=== PATIENT | male | born 1955 | race Caucasian/White ===

== ENCOUNTER 2018-10-17 08:37 | Day surgery (SDC) | payer BC ==
[~2018-10-17] VITALS: Ht 170.2 cm; Wt 55.4 kg
[~2018-10-17 08:37] MED LIST: BUSP10TA PO; CELE10TA PO; HYDR10EL PO; NS 1,000 ML IV ONE; VALI10TA PO
[2018-10-17] MEDS ORDERED: PROPOFOL 200 MG/20 ML VIAL As Ordered ONE (10:11)
[2018-10-17] MEDS ORDERED: LIDOCAINE 2% INJ 100 MG/5 ML SDV (FOR ANES.) As Ordered ONE (10:11)
[2018-10-17] MEDS ORDERED: fentaNYL 100 MCG/2 ML INJECTION (J3010) As Ordered ONE (10:57)
--- NOTE | 2018-10-17 11:07 | ROOR ---
Patient Name: Tan Steele Procedure Date: 10/17/2018 10:52 AM Date of : 1955 Age: 63 Room: [facility] Gender: Male Note Status: Finalized Procedure: Upper GI endoscopy Indications: Suspected esophageal reflux Providers: Matthew Lopez Jr, MD Referring MD: RAZA BARRIENTOS MD Requesting Provider: Medicines: Propofol per Anesthesia Complications: No immediate complications. Procedure: Pre-Anesthesia Assessment: - Prior to the procedure, a History and Physical was performed, and patient medications and allergies were reviewed. The patient is competent. The risks and benefits of the procedure and the sedation options and risks were discussed with the patient. All questions were answered and informed consent was obtained. Patient identification and proposed procedure were verified by the physician and the nurse in the pre-procedure area and in the procedure room. Mental Status Examination: alert and oriented. Airway Examination: normal oropharyngeal airway and neck mobility. Respiratory Examination: clear to auscultation. CV Examination: normal. ASA Grade Assessment: II - A patient with mild systemic disease. After reviewing the risks and benefits, the patient was deemed in satisfactory condition to undergo the procedure. The anesthesia plan was to use moderate sedation / analgesia (conscious sedation). Immediately prior to administration of medications, the patient was re-assessed for adequacy to receive sedatives. The heart rate, respiratory rate, oxygen saturations, blood pressure, adequacy of pulmonary ventilation, and response to care were monitored throughout the procedure. The physical status of the patient was re-assessed after the procedure. The Endoscope was introduced through the mouth, and advanced to the second part of duodenum. The upper GI endoscopy was accomplished without difficulty. The patient tolerated the procedure well. Findings: The upper third of the esophagus, middle third of the esophagus and lower third of the esophagus were normal. The cardia, gastric fundus, gastric body, gastric antrum, prepyloric region of the stomach and pylorus were normal. The duodenal bulb, first portion of the duodenum and second portion of the duodenum were normal. Impression: - Normal upper third of esophagus, middle third of esophagus and lower third of esophagus. - Normal cardia, gastric fundus, gastric body, antrum, prepyloric region of the stomach and pylorus. - Normal duodenal bulb, first portion of the duodenum and second portion of the duodenum. - No specimens collected. Recommendation: - Discharge patient to home (ambulatory). - Return to primary care physician as previously scheduled. Matthew Lopez MD Matthew Lopez Jr, MD 10/17/2018 11:07:11 AM Electronically signed by Matthew Lopez Jr, MD Number of Addenda: 0 Note Initiated On: 10/17/2018 10:52 AM Estimated Blood Loss: Estimated blood loss: none.
--- NOTE | 2018-10-17 11:21 | ROOR ---
Patient Name: Tan Steele Procedure Date: 10/17/2018 10:53 AM Date of : 1955 Age: 63 Room: [facility] Gender: Male Note Status: Finalized Procedure: Colonoscopy Indications: Screening in patient at increased risk: Family history of 1st-degree relative with colorectal cancer Providers: Matthew Lopez Jr, MD Referring MD: RAZA BARRIENTOS MD Requesting Provider: Medicines: Propofol per Anesthesia Complications: No immediate complications. Procedure: Pre-Anesthesia Assessment: - Prior to the procedure, a History and Physical was performed, and patient medications and allergies were reviewed. The patient is competent. The risks and benefits of the procedure and the sedation options and risks were discussed with the patient. All questions were answered and informed consent was obtained. Patient identification and proposed procedure were verified by the physician and the nurse in the pre-procedure area and in the procedure room. Mental Status Examination: alert and oriented. Airway Examination: normal oropharyngeal airway and neck mobility. Respiratory Examination: clear to auscultation. CV Examination: normal. ASA Grade Assessment: II - A patient with mild systemic disease. After reviewing the risks and benefits, the patient was deemed in satisfactory condition to undergo the procedure. The anesthesia plan was to use moderate sedation / analgesia (conscious sedation). Immediately prior to administration of medications, the patient was re-assessed for adequacy to receive sedatives. The heart rate, respiratory rate, oxygen saturations, blood pressure, adequacy of pulmonary ventilation, and response to care were monitored throughout the procedure. The physical status of the patient was re-assessed after the procedure. The Colonoscope was introduced through the anus and advanced to the cecum, identified by appendiceal orifice and ileocecal valve. The colonoscopy was performed without difficulty. The patient tolerated the procedure well. The quality of the bowel preparation was adequate. Findings: The rectum, recto-sigmoid colon, sigmoid colon, descending colon, transverse colon, ascending colon, cecum, appendiceal orifice and ileocecal valve appeared normal. Non-bleeding internal hemorrhoids were found during endoscopy. The hemorrhoids were moderate. Impression: - The rectum, recto-sigmoid colon, sigmoid colon, descending colon, transverse colon, ascending colon, cecum, appendiceal orifice and ileocecal valve are normal. - Non-bleeding internal hemorrhoids. - No specimens collected. Recommendation: - Discharge patient to home (ambulatory). - Repeat colonoscopy in 5 years for screening purposes. Matthew Lopez MD Matthew Lopez Jr, MD 10/17/2018 11:21:28 AM Electronically signed by Matthew Lopez Jr, MD Number of Addenda: 0 Note Initiated On: 10/17/2018 10:53 AM Estimated Blood Loss: Estimated blood loss: none.
[2018-10-17 11:45] VITALS: BP 99/57
== END 2018-10-17 11:56 | disposition home or self-care (01) ==
LOC: M OPP 08:37
PROVIDERS: ATTEND Surgery
DX: Z12.11 Encounter for screening for malignant neoplasm of colon (principal); Z80.0 Family history of malignant neoplasm of digestive organs; K64.8 Other hemorrhoids; K21.9 Gastro-esophageal reflux disease without esophagitis; F32.9 Major depressive disorder, single episode, unspecified; F41.9 Anxiety disorder, unspecified; R10.9 Unspecified abdominal pain; M19.90 Unspecified osteoarthritis, unspecified site; G62.9 Polyneuropathy, unspecified; Z79.899 Other long term (current) drug therapy
CPT/HCPCS: 43235; G0105; J3010

== ENCOUNTER → 2019-09-11 | Outpatient (REF) | payer BC ==
[~2019-09-11] MED LIST changes: -NS 1,000 ML IV ONE
== END ==
LOC: M LAB REF 17:30
PROVIDERS: ATTEND Dermatology
DX: C44.729 Squamous cell carcinoma of skin of left lower limb, including hip (principal); L57.0 Actinic keratosis

== ENCOUNTER 2020-08-05 12:03 | Emergency (ER) | payer MEDICARE, BC ==
[~2020-08-05] VITALS: Ht 170.2 cm; Wt 64.0 kg
[2020-08-05 12:04] VITALS: BP 140/91
[2020-08-05] MEDS ORDERED: LEXA1TAB2 (12:11)
[2020-08-05] MEDS ORDERED: SERO1TAB3 PO (12:11)
[2020-08-05] MEDS ORDERED: MIRT1TAB15 (12:11)
[2020-08-05 12:47] LABS: HEMATOCRIT 46.7 % (42.0-52.0); HEMOGLOBIN 15.1 g/dl (13.5-17.5); MEAN CORPUSCULAR HEMOGLOBIN 30.1 pg (27.0-33.0); MEAN CORPUSCULAR HGB CONC 32.3 g/dl (32.0-36.5); PLATELET COUNT, AUTOMATED 286 10^3/uL (150-450); RED BLOOD COUNT 5.02 10^6/uL (4.30-6.10); WHITE BLOOD COUNT 5.7 10^3/uL (4.0-10.0)
[2020-08-05 13:06] LABS: AMPHETAMINES LEVEL URINE NEGATIVE (NEGATIVE); BARBITURATES URINE NEGATIVE (NEGATIVE); BENZODIAZEPINES URINE POSITIVE (NEGATIVE); CANNABINOIDS URINE NEGATIVE (NEGATIVE); COCAINE METABOLITE URINE NEGATIVE (NEGATIVE); METHADONE URINE NEGATIVE (NEGATIVE); OPIATES URINE NEGATIVE (NEGATIVE); PHENCYCLIDINE URINE NEGATIVE (NEGATIVE)
[2020-08-05 13:19] LABS: ACETAMINOPHEN LEVEL < 2.0 UG/ML (10.0-30.0); ALT/SGPT 58 U/L (12-78); BILIRUBIN,DIRECT 0.1 MG/DL (0.0-0.2); BILIRUBIN,TOTAL 0.4 MG/DL (0.2-1.0); BLOOD UREA NITROGEN 15 MG/DL (7-18); CALCIUM LEVEL 9.4 MG/DL (8.8-10.2); CARBON DIOXIDE LEVEL 32 MEQ/L (21-32); CHLORIDE LEVEL 106 MEQ/L (98-107); CREATININE FOR GFR 0.76 MG/DL (0.70-1.30); ETHYL ALCOHOL (ETHANOL) < 0.003 % (0.000-0.010); GLOMERULAR FILTRATION RATE > 60.0 (>49); GLUCOSE, FASTING 106 MG/DL (70-100); POTASSIUM SERUM 4.1 MEQ/L (3.5-5.1); SALICYLATE LEVEL < 1.7 MG/DL (5.0-30.0); SODIUM LEVEL 140 MEQ/L (136-145); TOTAL PROTEIN 8.1 GM/DL (6.4-8.2)
== END 2020-08-05 15:07 | disposition home or self-care (01) ==
LOC: M ED 12:03
DX: F33.9 Major depressive disorder, recurrent, unspecified (principal); F41.9 Anxiety disorder, unspecified; Z79.899 Other long term (current) drug therapy

== ENCOUNTER 2020-09-11 10:09 | Emergency (ER) | payer MEDICARE, BC ==
[~2020-09-11] VITALS: Ht 170.2 cm; Wt 65.0 kg
[~2020-09-11 10:09] MED LIST changes: +LEXA1TAB2; +MIRT1TAB15; +SERO1TAB3 PO
[2020-09-11] MEDS ORDERED: MIRT-60 (10:20)
[2020-09-11] MEDS ORDERED: DOXY100T27 (10:20)
[2020-09-11] MEDS ORDERED: LEXA1TAB2 (10:20)
[2020-09-11] MEDS ORDERED: DIAZ10TA2 (10:20)
[2020-09-11] MEDS ORDERED: QUET25TA3 (10:20)
[2020-09-11] MEDS ORDERED: ZOLP5TAB PO (11:23)
[2020-09-11 11:46] VITALS: BP 121/61
== END 2020-09-11 12:03 | disposition home or self-care (01) ==
LOC: M ED 10:09
DX: R51.9 Headache, unspecified (principal); J30.89 Other allergic rhinitis; G47.00 Insomnia, unspecified; Z79.899 Other long term (current) drug therapy; Z87.891 Personal history of nicotine dependence

== ENCOUNTER 2020-09-23 15:16 | Emergency (ER) | payer MEDICARE, BC ==
[~2020-09-23] VITALS: Ht 170.2 cm; Wt 62.8 kg
[~2020-09-23 15:16] MED LIST changes: +DIAZ10TA2; +DOXY100T27; +MIRT-60; +QUET25TA3; +ZOLP5TAB PO
[2020-09-23 16:52] VITALS: BP 123/81
== END 2020-09-23 17:21 | disposition home or self-care (01) ==
LOC: M ED 15:16
DX: F33.9 Major depressive disorder, recurrent, unspecified (principal); F41.9 Anxiety disorder, unspecified; Z79.899 Other long term (current) drug therapy; Z12.83 Encounter for screening for malignant neoplasm of skin; L82.1 Other seborrheic keratosis; L90.5 Scar conditions and fibrosis of skin; D22.5 Melanocytic nevi of trunk; D36.10 Benign neoplasm of peripheral nerves and autonomic nervous system, unspecified; L85.8 Other specified epidermal thickening
CPT/HCPCS: 99283; G0463

== ENCOUNTER 2020-09-27 11:24 | Emergency (ER) | payer MEDICARE, BC ==
[~2020-09-27] VITALS: Ht 170.2 cm; Wt 63.3 kg
[2020-09-27] MEDS ORDERED: FLUO10CA16 (11:36)
[2020-09-27 12:53] LABS: HEMOGLOBIN 13.2 g/dl (13.5-17.5); MEAN CORPUSCULAR HEMOGLOBIN 30.4 pg (27.0-33.0); MEAN CORPUSCULAR VOLUME 92.2 fl (80.0-96.0); PLATELET COUNT, AUTOMATED 366 10^3/uL (150-450); RED BLOOD COUNT 4.34 10^6/uL (4.30-6.10); WHITE BLOOD COUNT 8.1 10^3/uL (4.0-10.0)
[2020-09-27 13:50] LABS: ACETAMINOPHEN LEVEL < 2.0 UG/ML (10.0-30.0); ALBUMIN 3.7 GM/DL (3.2-5.2); ALT/SGPT 44 U/L (12-78); BILIRUBIN,DIRECT 0.1 MG/DL (0.0-0.2); BILIRUBIN,TOTAL 0.4 MG/DL (0.2-1.0); BLOOD UREA NITROGEN 9 MG/DL (7-18); CALCIUM LEVEL 8.9 MG/DL (8.8-10.2); CARBON DIOXIDE LEVEL 33 MEQ/L (21-32); CHLORIDE LEVEL 105 MEQ/L (98-107); ETHYL ALCOHOL (ETHANOL) < 0.003 % (0.000-0.010); GLOMERULAR FILTRATION RATE > 60.0 (>49); GLUCOSE, FASTING 101 MG/DL (70-100); POTASSIUM SERUM 4.2 MEQ/L (3.5-5.1); SALICYLATE LEVEL 2.1 MG/DL (5.0-30.0); SODIUM LEVEL 140 MEQ/L (136-145); TOTAL PROTEIN 7.4 GM/DL (6.4-8.2)
[2020-09-27 13:54] LABS: AMPHETAMINES LEVEL URINE NEGATIVE (NEGATIVE); BARBITURATES URINE NEGATIVE (NEGATIVE); BENZODIAZEPINES URINE POSITIVE (NEGATIVE); CANNABINOIDS URINE NEGATIVE (NEGATIVE); COCAINE METABOLITE URINE NEGATIVE (NEGATIVE); METHADONE URINE NEGATIVE (NEGATIVE); OPIATES URINE NEGATIVE (NEGATIVE); PHENCYCLIDINE URINE NEGATIVE (NEGATIVE)
[2020-09-27] MEDS ORDERED: OXAZEPAM 15 MG CAP PO ONE (14:55)
[2020-09-27 16:00] VITALS: BP 126/69
--- NOTE | 2020-09-27 19:06 | ECGEPIP ---
[facility] - ED Test Date: 2020-09-27 Pat Name: BRIONNA MARQUEZ Department: Room: - Gender: Male Duty Manager: HERMELINDA : 1955 Requested By: Elias Peters Order Number: [id number] Reading MD: Elias Peters Measurements Intervals [place] Rate: 72 P: 79 VT: 132 QRS: 67 QRSD: 80 T: 60 QT: 360 QTc: 394 Interpretive Statements Normal sinus rhythm Nonspecific ST T wave changes No prior ECG for comparison Electronically Signed on 09-27-2020 19:06:32 EDT by Elias Peters
== END 2020-09-27 16:04 | disposition home or self-care (01) ==
LOC: M ED 11:24
DX: F33.9 Major depressive disorder, recurrent, unspecified (principal); F41.9 Anxiety disorder, unspecified; Z79.899 Other long term (current) drug therapy

== ENCOUNTER 2020-09-28 11:57 | Emergency (ER) | payer MEDICARE, BC ==
[~2020-09-28] VITALS: Ht 170.2 cm; Wt 62.3 kg
[~2020-09-28 11:57] MED LIST changes: +FLUO10CA16
[2020-09-28 12:50] LABS: HEMATOCRIT 43.2 % (42.0-52.0); HEMOGLOBIN 13.7 g/dl (13.5-17.5); MEAN CORPUSCULAR HEMOGLOBIN 29.5 pg (27.0-33.0); MEAN CORPUSCULAR HGB CONC 31.7 g/dl (32.0-36.5); MEAN CORPUSCULAR VOLUME 92.9 fl (80.0-96.0); PLATELET COUNT, AUTOMATED 360 10^3/uL (150-450); RED BLOOD COUNT 4.65 10^6/uL (4.30-6.10); WHITE BLOOD COUNT 9.9 10^3/uL (4.0-10.0)
[2020-09-28 13:20] LABS: AMPHETAMINES LEVEL URINE NEGATIVE (NEGATIVE); BARBITURATES URINE NEGATIVE (NEGATIVE); BENZODIAZEPINES URINE POSITIVE (NEGATIVE); CANNABINOIDS URINE NEGATIVE (NEGATIVE); COCAINE METABOLITE URINE NEGATIVE (NEGATIVE); METHADONE URINE NEGATIVE (NEGATIVE); OPIATES URINE NEGATIVE (NEGATIVE); PHENCYCLIDINE URINE NEGATIVE (NEGATIVE)
[2020-09-28 13:28] LABS: ACETAMINOPHEN LEVEL < 2.0 UG/ML (10.0-30.0); ALBUMIN 3.7 GM/DL (3.2-5.2); ALT/SGPT 40 U/L (12-78); BILIRUBIN,DIRECT 0.1 MG/DL (0.0-0.2); BILIRUBIN,TOTAL 0.6 MG/DL (0.2-1.0); BLOOD UREA NITROGEN 12 MG/DL (7-18); CALCIUM LEVEL 9.2 MG/DL (8.8-10.2); CARBON DIOXIDE LEVEL 31 MEQ/L (21-32); CHLORIDE LEVEL 104 MEQ/L (98-107); CREATININE FOR GFR 0.73 MG/DL (0.70-1.30); ETHYL ALCOHOL (ETHANOL) < 0.003 % (0.000-0.010); GLOMERULAR FILTRATION RATE > 60.0 (>49); GLUCOSE, FASTING 86 MG/DL (70-100); POTASSIUM SERUM 4.2 MEQ/L (3.5-5.1); SALICYLATE LEVEL < 1.7 MG/DL (5.0-30.0); SODIUM LEVEL 142 MEQ/L (136-145); TOTAL PROTEIN 7.8 GM/DL (6.4-8.2)
[2020-09-28 16:09] VITALS: BP 147/76
== END 2020-09-28 15:35 | disposition home or self-care (01) ==
LOC: M ED 11:57
DX: F41.9 Anxiety disorder, unspecified (principal); F33.9 Major depressive disorder, recurrent, unspecified; Z79.899 Other long term (current) drug therapy; Z87.891 Personal history of nicotine dependence

== ENCOUNTER → 2020-12-02 | Outpatient (REF) | payer MEDICARE, BC ==
[~2020-12-02] MED LIST changes: +QUET1TAB17; -QUET25TA3
== END ==
LOC: M LAB REF 09:37
PROVIDERS: ATTEND Ophthalmology
DX: D23.111 Other benign neoplasm of skin of right upper eyelid, including canthus (principal)

== ENCOUNTER → 2021-11-01 | Outpatient (CLI) | payer MEDICARE, BC ==
[~2021-11-01] MED LIST changes: -FLUO10CA16; +FLUO10CA18
[2021-11-01 18:00] LABS: BLOOD UREA NITROGEN 16 MG/DL (7-18)
[2021-11-01 18:07] LABS: GLOMERULAR FILTRATION RATE > 60.0 (>49)
== END ==
LOC: M LAB 14:44
PROVIDERS: ATTEND Physician Assistant Medical
DX: R22.1 Localized swelling, mass and lump, neck (principal)

== ENCOUNTER → 2021-11-08 | Outpatient (CLI) | payer MEDICARE, BC ==
[~2021-11-08] MED LIST changes: +ISOVUE-370 76% 100ML VIAL As Ordered ONE
== END ==
LOC: M RAD 13:19
PROVIDERS: ATTEND Physician Assistant Medical
DX: R22.1 Localized swelling, mass and lump, neck (principal)
CPT/HCPCS: 70491; Q9967

== ENCOUNTER → 2022-01-10 | Outpatient (CLI) | payer MEDICARE, BC ==
[~2022-01-10] MED LIST changes: +ALPR0.5T3 PO; -ISOVUE-370 76% 100ML VIAL As Ordered ONE
== END ==
LOC: M LABSMTC 10:46
PROVIDERS: ATTEND Anesthesiology
DX: Z01.818 Encounter for other preprocedural examination (principal); Z11.52 Encounter for screening for COVID-19

== ENCOUNTER 2022-01-12 08:18 | Day surgery (SDC) | payer MEDICARE, BC ==
[~2022-01-12] VITALS: Ht 170.2 cm; Wt 62.6 kg
[2022-01-12] MEDS ORDERED: LR 1,000 ML IV SCH ×2 (10:30→11:55)
[2022-01-12] MEDS ORDERED: METHYLENE BLUE 0.5% (5MG/ML) 10 ML AMP (PROVAYBLUE) As Ordered ONE (10:32)
[2022-01-12] MEDS ORDERED: LIDOCAINE W/EPINEPHRINE 1% 20ML VIAL As Ordered ONE (10:32)
[2022-01-12] MEDS ORDERED: propofoL 200 MG/20 ML VIAL As Ordered ONE (10:39)
[2022-01-12] MEDS ORDERED: LIDOCAINE 2% 100MG/5ML SDV (FOR ANES.) As Ordered ONE (10:39)
[2022-01-12] MEDS ORDERED: ROCURONIUM BROMIDE 50 MG/5 ML VIAL As Ordered ONE (10:39)
[2022-01-12] MEDS ORDERED: MIDAZOLAM INJ 2MG/2ML VIAL (J2250 PER 1MG) As Ordered ONE (10:40)
[2022-01-12] MEDS ORDERED: fentaNYL 100 MCG/2 ML INJECTION As Ordered ONE (10:40)
[2022-01-12] MEDS ORDERED: ONDANSETRON 4MG 2ML VIAL As Ordered ONE (11:38)
[2022-01-12] MEDS ORDERED: dexameTHASONE 4 MG/ML 1ML VIAL (J1100 PER 1MG) As Ordered ONE (11:38)
[2022-01-12] MEDS ORDERED: KETOROLAC 60MG 2ML VIAL As Ordered ONE (11:38)
[2022-01-12] MEDS ORDERED: SUGAMMADEX SODIUM 500 MG/5 ML VIAL (BRIDION) As Ordered ONE (11:38)
[2022-01-12] MEDS ORDERED: PHENYLephrine 500MCG 5ML (100MCG/ML) SYRINGE As Ordered ONE ×2 (11:41→11:46)
[2022-01-12] MEDS ORDERED: oxyCODONE 5MG TAB PO PRN (11:55)
[2022-01-12] MEDS ORDERED: ONDANSETRON 4MG 2ML VIAL IV PRN (11:55)
[2022-01-12] MEDS ORDERED: fentaNYL 100 MCG/2 ML INJECTION IV PRN (11:55)
[2022-01-12 12:55] VITALS: BP 136/79
== END 2022-01-12 13:22 | disposition home or self-care (01) ==
LOC: M SDC 08:18
PROVIDERS: ATTEND Otolaryngology
DX: J38.1 Polyp of vocal cord and larynx (principal); K21.9 Gastro-esophageal reflux disease without esophagitis; Z79.899 Other long term (current) drug therapy
CPT/HCPCS: 31536; 88305; J1100; J1885; J2250; J2370; J2405; J3010; Q9968

== ENCOUNTER → 2022-10-31 | Outpatient (CLI) | payer MEDICARE, BC | LOC: M RAD 09:35 | PROVIDERS: ATTEND Internal Medicine Critical Care Medicine | DX: R91.8 Other nonspecific abnormal finding of lung field (principal) ==

== ENCOUNTER → 2023-08-15 | Outpatient (CLI) | payer MEDICARE ==
[~2023-08-15] MED LIST changes: +DIAZ-654 PO; +FLUO-290; -FLUO10CA18; -MIRT-60; +MIRT-89; -VALI10TA PO
== END ==
LOC: M SOG 07:56
PROVIDERS: ATTEND Physician Assistant
DX: M25.531 Pain in right wrist (principal)

== ENCOUNTER → 2023-10-16 | Outpatient (REF) | payer MEDICARE, BC | LOC: M SFHCDERM 17:33 | PROVIDERS: ATTEND Nurse Practitioner Family | DX: C44.41 Basal cell carcinoma of skin of scalp and neck (principal) ==

== ENCOUNTER → 2023-12-06 | Outpatient (CLI) | payer MEDICARE, BC | LOC: M RAD 10:02 | PROVIDERS: ATTEND Internal Medicine Critical Care Medicine | DX: R91.8 Other nonspecific abnormal finding of lung field (principal) ==

== ENCOUNTER 2023-12-20 09:07 | Day surgery (SDC) | payer MEDICARE, BC ==
[~2023-12-20] VITALS: Ht 170.2 cm; Wt 59.0 kg
[~2023-12-20 09:07] MED LIST changes: +NS 1,000 ML IV ONE
[2023-12-20] MEDS ORDERED: propofoL 200 MG/20 ML VIAL As Ordered ONE (11:36)
[2023-12-20 11:45] VITALS: TEMP 97.6
[2023-12-20 12:00] VITALS: BP 111/64; O2SAT 97
== END 2023-12-20 12:09 | disposition home or self-care (01) ==
LOC: M OPP 09:07
PROVIDERS: ATTEND Surgery
DX: Z12.11 Encounter for screening for malignant neoplasm of colon (principal); R12 Heartburn; F41.9 Anxiety disorder, unspecified; F32.A Depression, unspecified; Z87.891 Personal history of nicotine dependence; Z79.899 Other long term (current) drug therapy; Z80.0 Family history of malignant neoplasm of digestive organs

== ENCOUNTER 2024-11-17 11:01 | Day surgery (SDC) | payer MEDICARE, BC ==
[~2024-11-17] VITALS: Ht 170.2 cm; Wt 61.7 kg
[~2024-11-17 11:01] MED LIST changes: +LR 1,000 ML IV SCH; -NS 1,000 ML IV ONE
[2024-11-17] MEDS: TETRACAINE 0.5% OPHTH SOLN 4ML OD SCH (13:12)
[2024-11-17] MEDS: PHENYLEPHRINE 2.5% OPHTH SOL 2ML OD SCH (13:13)
[2024-11-17] MEDS: FLURBIPROFEN 0.03% OPHTH SOLN 2.5 ML OD SCH (13:13)
[2024-11-17] MEDS: CYCLOPENTOLATE 1% OPHTH SOLN 2 ML BTL OD SCH (13:14)
[2024-11-17] MEDS ORDERED: MIDAZOLAM INJ 2 MG/2 ML VIAL As Ordered ONE (14:06)
[2024-11-17] MEDS: LIDOCAINE 1% SDV 5 ML VIAL As Ordered ONE (14:23)
[2024-11-17] MEDS: CEFUROXIME 1 MG/0.1 ML INTRACAMERAL INJ As Ordered ONE (14:23)
[2024-11-17 14:44] VITALS: BP 147/67; TEMP 97.6; O2SAT 100
== END 2024-11-17 14:50 | disposition home or self-care (01) ==
LOC: M SDC 11:01
PROVIDERS: ATTEND Ophthalmology
DX: H25.9 Unspecified age-related cataract (principal); J30.2 Other seasonal allergic rhinitis; Z80.9 Family history of malignant neoplasm, unspecified; Z83.3 Family history of diabetes mellitus; Z87.891 Personal history of nicotine dependence
CPT/HCPCS: 66984; J0697; J2250; J3010; V2632

== ENCOUNTER → 2025-02-18 | Outpatient (CLI) | payer MEDICARE, BC ==
[~2025-02-18] MED LIST changes: -LR 1,000 ML IV SCH; -ZOLP5TAB PO; +ZOLP5TAB9 PO
== END ==
LOC: M PLAIMG 13:15
PROVIDERS: ATTEND Internal Medicine Critical Care Medicine
DX: R91.8 Other nonspecific abnormal finding of lung field (principal)